=== PATIENT | female | born 1945 | race Hispanic/Latino ===

== ENCOUNTER → 2017-12-25 | Day surgery (SDC) | payer MEDICARE, OTHER ==
[2017-12-22 11:28] LABS: BASOPHILS % 0.3 % (0.0-1.0); EOSINOPHILS # (AUTO) 0.1 (0.0-0.4); EOSINOPHILS % 1.3 % (0.0-6.0); HEMATOCRIT 35.9 % (34.2-44.1); HEMOGLOBIN 11.9 g/dL (12.0-16.0); LYMPHOCYTES # (AUTO) 1.6 (1.0-3.2); LYMPHOCYTES % 25.1 % (18.0-39.1); MEAN CORPUSCULAR HEMOGLOBIN 30.1 pg (28-32); MEAN CORPUSCULAR HGB CONC 33.1 g/dL (31-35); MEAN CORPUSCULAR VOLUME 90.9 fL (81-99); MONOCYTES # (AUTO) 0.7 (0.2-0.8); MONOCYTES % 11.5 % (4.4-11.3); NEUTROPHILS # (AUTO) 3.8 (2.1-6.9); NEUTROPHILS % 61.3 % (38.7-80.0); PLATELET COUNT 211 x10e3/uL (140-360); RED BLOOD COUNT 3.95 x10e6/uL (3.6-5.1); RED CELL DISTRIBUTION WIDTH 13.1 % (11.7-14.4)
[~2017-12-25] MED LIST: ACIDOPHILUS1 EAC1 PO; ALENDRONATE SOD70 MG PO; CALCIUM CARBON500 MG PO; COLACE100 MG PO; DONEPEZIL HCL5 MG PO; FAMOTIDINE20 MG PO; FENTANYL CITRATE/PF 100MCG/2 ML INJ ONE; GABAPENTIN300 MG PO; HYOSCYAMINE SULFATE 0.5 MG/ML AMP ONE; IRON325 M1 PO; LEVOTHYROXINE125 MCG PO; LIDOCAINE HCL 2% LOCAL INJ 5 ML SDV VIAL INJ ONE; LISINOPRIL10 MG PO; MIDAZOLAM HCL 2 MG/2 ML VIAL ONE; MULTIPLE VITAM1 EAC2 PO; NAMENDA10 MG PO; PEPTO-BISM262 MG/15 PO; PROPOFOL IV EMULSION 10 MG/ML 50 ML VIAL ONE; SENNA8.6 MG PO; ULTRAM 50MG50 MG PO; ZOFRAN4 MG PO
--- NOTE | 2017-12-25 11:14 | Operative Report ---
DATE OF PROCEDURE: December 25, 2017 REFERRING PHYSICIAN: Melvina Christianson MD PROCEDURE PERFORMED: Colonoscopy. INDICATIONS FOR COLONOSCOPY: Colorectal cancer screening. MEDICATION: Patient was done under MAC. Please see anesthesiologist's note. PROCEDURE: With the patient in the left lateral decubitus position, the flexible fiberoptic Olympus colonoscope was inserted into the rectum with ease and advanced all the way to the cecum. The scope was then withdrawn slowly. The mucosa overlying the cecum appeared to be within normal limits. Scattered diverticular disease was noted throughout but was more pronounced in the distal descending and sigmoid. The rectum appeared to be within normal limits. The scope was then retroflexed into the distal rectum, and moderate-size internal hemorrhoids were noted, none of which was actively bleeding. The scope was then straightened out. It was subsequently withdrawn. Patient tolerated the procedure well. IMPRESSION 1. Diverticulosis. 2. Internal hemorrhoids, none actively bleeding. PLAN: Initiate high-fiber, low-fat diet. Initiate high-fiber supplement. Patient might benefit from a followup colonoscopy in 5 years. Job#: [id number] cc:MELVINA CHRISTIANSON MD
== END | disposition home or self-care (01) ==
LOC: OR 08:26
PROVIDERS: ATTEND Internal Medicine Gastroenterology
DX: Z12.11 Encounter for screening for malignant neoplasm of colon (principal); K57.30 Diverticulosis of large intestine without perforation or abscess without bleeding; K64.8 Other hemorrhoids; K59.00 Constipation, unspecified; K21.9 Gastro-esophageal reflux disease without esophagitis; I10 Essential (primary) hypertension; M81.0 Age-related osteoporosis without current pathological fracture; E03.9 Hypothyroidism, unspecified; M19.90 Unspecified osteoarthritis, unspecified site; Z91.010 Allergy to peanuts; Z88.0 Allergy status to penicillin; Z91.018 Allergy to other foods; Z01.810 Encounter for preprocedural cardiovascular examination; Z01.812 Encounter for preprocedural laboratory examination
CPT/HCPCS: 36415; 85025; 93005; G0121; J1980; J2001; J2250; 45378

== ENCOUNTER → 2020-02-25 | Outpatient (CLI) | payer MEDICARE, OTHER ==
[~2020-02-25] MED LIST changes: -FENTANYL CITRATE/PF 100MCG/2 ML INJ ONE; -HYOSCYAMINE SULFATE 0.5 MG/ML AMP ONE; -LIDOCAINE HCL 2% LOCAL INJ 5 ML SDV VIAL INJ ONE; -MIDAZOLAM HCL 2 MG/2 ML VIAL ONE; -PROPOFOL IV EMULSION 10 MG/ML 50 ML VIAL ONE
--- NOTE | 2020-02-28 08:21 | Diagnostic Imaging Report ---
#[id number] - [id number] #BILATERAL FIRST EVER DIGITAL SCREENING MAMMOGRAM WITH CAD: 02/25/2020 CLINICAL: Routine screening. No prior exams were available for comparison. Current study contains 5 films. The tissue of both breasts is predominantly fatty. Current study was also evaluated with a Computer Aided Detection (CAD) system. Benign calcification is present in the left breast. No significant masses, calcifications, or other findings are seen in either breast. IMPRESSION: BENIGN There is no mammographic evidence of malignancy. A 1 year screening mammogram is recommended. The patient will be notified by letter of the results. ANDREW GAMBINO M.D. ct/penrad:02/27/2020 16:07:09 Financial Developer: Gretchen HASKINS(R)(M), [facility] letter sent: Normal Exam Mammogram BI-RADS: 2 Benign
== END ==
LOC: MAMMO 09:06
PROVIDERS: ATTEND Family Medicine
DX: Z12.31 Encounter for screening mammogram for malignant neoplasm of breast (principal)
CPT/HCPCS: 77067

== ENCOUNTER → 2020-04-22 | Outpatient (CLI) | payer MEDICARE, OTHER ==
--- NOTE | 2020-04-22 11:40 | Diagnostic Imaging Report ---
Exam: Bone mineral density study. History: Osteoporosis Comparison: None Discussion: Evaluation of the left hip and lumbar spine was performed utilizing DEXA Hologic bone densitometer. The study is technically adequate. The patient's fracture risk is compared to an age-matched control. The patient denies prior surgery/fracture of the spine, hips or forearm. Left hip femoral neck bone mineral density: 0.596 g/cm2, T-score is -2.4, Z-score is -0.4. Left hip total bone mineral density: 0.657 g/cm2, T-score is -2.3, Z-score is -0.6. Lumbar spine total bone mineral density: 0.885 gm/cm2, T-score is -1.5, Z-score is 0.9. Impression: 1. Bone mineralization by WHO Classification of the left hip is osteopenia, the fracture risk is moderate. 2. Bone mineralization by WHO Classification of the lumbar spine is osteopenia, the fracture risk is moderate. Recommendations: Medical evaluation for secondary causes of low bone mineral density may be appropriate. Correlate clinically for the necessity and timing of the next bone mineral density study. Signed by: Dr. Raghavendra Valverde MD on 04/22/2020 11:37 AM
== END ==
LOC: CARD 09:34
PROVIDERS: ATTEND Family Medicine
DX: M81.0 Age-related osteoporosis without current pathological fracture (principal); I73.9 Peripheral vascular disease, unspecified
CPT/HCPCS: 77080; 93925

== ENCOUNTER → 2021-01-22 | Outpatient (CLI) | payer MEDICARE, OTHER | LOC: US 13:23 | PROVIDERS: ATTEND Family Medicine | DX: R31.29 Other microscopic hematuria (principal) | CPT/HCPCS: 76770 ==

== ENCOUNTER → 2021-09-01 | Outpatient (CLI) | payer MEDICARE, OTHER | LOC: MAMMO 09:03 | PROVIDERS: ATTEND Family Medicine | DX: Z12.31 Encounter for screening mammogram for malignant neoplasm of breast (principal); L03.116 Cellulitis of left lower limb; R60.9 Edema, unspecified | CPT/HCPCS: 76882; 77067 ==

== ENCOUNTER 2022-02-22 10:06 | Inpatient (IN) | payer MEDICARE ==
[~2022-02-22] VITALS: Ht 157.5 cm; Wt 61.2 kg
[2022-02-22] MEDS ORDERED: HYDRALAZINE HCL 20 MG/ML VIAL IV PRN (11:30)
[2022-02-22 11:35] LABS: BASOPHILS % 0.5 % (0.0-1.0); EOSINOPHILS # (AUTO) 0.1 (0.0-0.4); EOSINOPHILS % 1.4 % (0.0-6.0); HEMATOCRIT 34.9 % (34.2-44.1); HEMOGLOBIN 11.5 g/dL (12.0-16.0); LYMPHOCYTES % 24.3 % (18.0-39.1); MEAN CORPUSCULAR HEMOGLOBIN 28.7 pg (28-32); MONOCYTES # (AUTO) 0.3 (0.2-0.8); MONOCYTES % 7.9 % (4.4-11.3); NEUTROPHILS # (AUTO) 2.8 (2.1-6.9); NEUTROPHILS % 65.7 % (38.7-80.0); PLATELET COUNT 173 x10e3/uL (140-360); RED BLOOD COUNT 4.01 x10e6/uL (3.6-5.1)
[2022-02-22 11:56] LABS: ALBUMIN 3.8 g/dL (3.5-5.0); ALBUMIN/GLOBULIN RATIO 0.9 (0.8-2.0); ANION GAP 12.1 mmol/L (8-16); CREATININE, SERUM 0.6 mg/dL (0.57-1.11); POTASSIUM 3.1 mmol/L (3.5-5.1)
[2022-02-22] MEDS ORDERED: SODIUM CHLORIDE FLUSH 10 ML SYR INJ PRN (12:45)
[2022-02-22] MEDS ORDERED: ONDANSETRON HCL INJ 2MG/ML 2ML 2 MG/ML VIAL IV PRN (12:45)
[2022-02-22 16:25] VITALS: BP 166/71
[2022-02-22 16:34] VITALS: BP 166/71
[2022-02-22] MEDS ORDERED: MELOXICAM7.5 MG PO (17:16)
[2022-02-22] MEDS ORDERED: LOSARTAN POTAS100 MG PO (17:16)
[2022-02-22] MEDS ORDERED: VITAMIN D2 PO (17:16)
[2022-02-22 17:17] VITALS: BP 166/71
[2022-02-22] MEDS ORDERED: XARELTO20 MG PO (17:17)
[2022-02-22] MEDS ORDERED: TYLENOL325 MG PO (17:33)
[2022-02-22 17:48] VITALS: BP 156/67
[2022-02-22] MEDS: ACETAMINOPHEN 325 MG TAB PO PRN (18:28)
[2022-02-22 19:06] LABS: CREATINE KINASE MB 1.3 ng/mL (0-5.0)
[2022-02-22 20:00] VITALS: BP 158/75
[2022-02-22 21:15] VITALS: BP 158/75
[2022-02-22] MEDS ORDERED: MELOXICAM 7.5 MG TAB PO PRN (23:15)
[2022-02-23] VITALS (7 sets, daily range): BP systolic 145–191; BP diastolic 63–86
[2022-02-23 05:17] LABS: BASOPHILS % 0.4 % (0.0-1.0); EOSINOPHILS # (AUTO) 0.1 (0.0-0.4); EOSINOPHILS % 1.5 % (0.0-6.0); HEMATOCRIT 33.1 % (34.2-44.1); LYMPHOCYTES # (AUTO) 1.9 (1.0-3.2); LYMPHOCYTES % 40.6 % (18.0-39.1); MEAN CORPUSCULAR HEMOGLOBIN 28.4 pg (28-32); MEAN CORPUSCULAR HGB CONC 33.2 g/dL (31-35); MEAN CORPUSCULAR VOLUME 85.3 fL (81-99); MONOCYTES # (AUTO) 0.4 (0.2-0.8); MONOCYTES % 7.9 % (4.4-11.3); NEUTROPHILS # (AUTO) 2.3 (2.1-6.9); NEUTROPHILS % 49.4 % (38.7-80.0); PLATELET COUNT 175 x10e3/uL (140-360); RED BLOOD COUNT 3.88 x10e6/uL (3.6-5.1)
[2022-02-23 05:50] LABS: CREATINE KINASE MB 1.1 ng/mL (0-5.0)
[2022-02-23 06:13] LABS: ALBUMIN 3.5 g/dL (3.5-5.0); ALBUMIN/GLOBULIN RATIO 0.8 (0.8-2.0); ANION GAP 12.7 mmol/L (8-16); CHOL/HDL RATIO 4.1 (3.0-3.6); CREATININE, SERUM 0.61 mg/dL (0.57-1.11); POTASSIUM 3.7 mmol/L (3.5-5.1)
[2022-02-23] MEDS ORDERED: LEVOTHYROXINE SODIUM 125 MCG TAB PO SCH (07:30)
[2022-02-23] MEDS ORDERED: RIVAROXABAN 20 MG TABLET PO SCH (09:00)
[2022-02-23] MEDS ORDERED: LOSARTAN POTASSIUM 100 MG TAB PO SCH (09:00)
[2022-02-23] MEDS ORDERED: ONDANSETRON HCL 4 MG ORAL DISINTEGRATING TAB PO PRN (10:00)
[2022-02-23] MEDS: FAMOTIDINE 20 MG TAB PO SCH (10:00)
[2022-02-23] MEDS: HYDROCHLOROTHIAZIDE 25 MG TAB PO SCH ×2 (10:45→12:27)
[2022-02-23] MEDS ORDERED: PANTOPRAZOLE SOD 40 MG TABEC PO SCH (15:00)
[2022-02-23 16:24] LABS: CREATINE KINASE MB 1.4 ng/mL (0-5.0)
[2022-02-23] MEDS ORDERED: RIVAROXABAN 15 MG TABLET PO SCH (17:00)
[2022-02-23] MEDS: AMLODIPINE BESYLATE 5 MG TAB PO SCH (17:12)
[2022-02-23 23:13] LABS: % IRON SATURATION 29 % (15-50); IRON 82 ug/dL (50-170); TOTAL IRON BINDING CAPACITY 281 ug/dL (261-478); TRANSFERRIN 201 mg/dL (180-382)
[2022-02-23] MEDS ORDERED: BISACODYL 5 MG TAB EC PO ONE (23:45)
[2022-02-24] VITALS (7 sets, daily range): BP systolic 152–175; BP diastolic 78–87
[2022-02-24] MEDS ORDERED: BISACODYL 5 MG TAB EC PO ONE (00:20)
[2022-02-24 05:04] LABS: INR 0.92; PROTHROMBIN TIME 13.2 seconds (11.9-14.5)
[2022-02-24] MEDS ORDERED: PANTOPRAZOLE SOD 40 MG TABEC PO SCH (06:00)
[2022-02-24] MEDS ORDERED: LEVOTHYROXINE SODIUM 125 MCG TAB PO SCH (06:00)
[2022-02-24] MEDS: LEVOTHYROXINE SODIUM 75 MCG TAB PO SCH (06:00)
[2022-02-24] MEDS ORDERED: PEG (High)/E-LYTE SOLN 4,000 ML BTL PO ONE (07:00)
[2022-02-24] MEDS ORDERED: RIVAROXABAN 15 MG TABLET PO SCH (09:00)
[2022-02-24] MEDS: AMLODIPINE BESYLATE 5 MG TAB PO SCH (09:06)
[2022-02-24] MEDS: FAMOTIDINE 20 MG TAB PO SCH (09:07)
[2022-02-24] MEDS: HYDROCHLOROTHIAZIDE 25 MG TAB PO SCH (09:08)
[2022-02-24] MEDS: LOSARTAN POTASSIUM 100 MG TAB PO SCH (09:08)
[2022-02-24] MEDS: ACETAMINOPHEN 325 MG TAB PO PRN (09:09)
[2022-02-24] MEDS ORDERED: FENTANYL CITRATE/PF 100MCG/2 ML INJ ONE (14:34)
[2022-02-24] MEDS ORDERED: PROPOFOL IV EMULSION 10 MG/ML 20 ML VIAL ONE (19:16)
[2022-02-24] MEDS ORDERED: LIDOCAINE HCL 2% LOCAL INJ 5 ML SDV VIAL INJ ONE (19:16)
[2022-02-25] VITALS (7 sets, daily range): BP systolic 120–146; BP diastolic 62–71
[2022-02-25] MEDS: LEVOTHYROXINE SODIUM 75 MCG TAB PO SCH (06:09)
[2022-02-25] MEDS: AMLODIPINE BESYLATE 5 MG TAB PO SCH ×2 (09:00→09:36)
[2022-02-25] MEDS: FAMOTIDINE 20 MG TAB PO SCH ×2 (09:00→09:36)
[2022-02-25] MEDS: LOSARTAN POTASSIUM 100 MG TAB PO SCH ×2 (09:00→09:35)
[2022-02-25] MEDS: HYDROCHLOROTHIAZIDE 25 MG TAB PO SCH ×2 (09:00→09:36)
[2022-02-26] VITALS (8 sets, daily range): BP systolic 123–144; BP diastolic 64–74
[2022-02-26] MEDS: LEVOTHYROXINE SODIUM 75 MCG TAB PO SCH (05:46)
[2022-02-26] MEDS ORDERED: PANTOPRAZOLE SOD 40 MG TABEC PO SCH (07:30)
[2022-02-26] MEDS: HYDROCHLOROTHIAZIDE 25 MG TAB PO SCH (09:00)
[2022-02-26] MEDS: LOSARTAN POTASSIUM 100 MG TAB PO SCH (09:00)
[2022-02-26] MEDS: AMLODIPINE BESYLATE 5 MG TAB PO SCH (09:00)
[2022-02-26] MEDS: PANTOPRAZOLE SOD 40 MG TABEC PO SCH ×2 (09:17→16:30)
[2022-02-26] MEDS: FAMOTIDINE 20 MG TAB PO SCH (09:17)
[2022-02-26 12:33] LABS: BASOPHILS % 0.4 % (0.0-1.0); EOSINOPHILS # (AUTO) 0.1 (0.0-0.4); HEMATOCRIT 34.7 % (34.2-44.1); HEMOGLOBIN 11.7 g/dL (12.0-16.0); LYMPHOCYTES % 20.2 % (18.0-39.1); MEAN CORPUSCULAR HGB CONC 33.7 g/dL (31-35); MEAN CORPUSCULAR VOLUME 85.9 fL (81-99); MONOCYTES # (AUTO) 0.4 (0.2-0.8); MONOCYTES % 7.4 % (4.4-11.3); NEUTROPHILS # (AUTO) 3.5 (2.1-6.9); NEUTROPHILS % 70.8 % (38.7-80.0); PLATELET COUNT 193 x10e3/uL (140-360); RED BLOOD COUNT 4.04 x10e6/uL (3.6-5.1); RED CELL DISTRIBUTION WIDTH 15.1 % (11.7-14.4)
[2022-02-26 12:56] LABS: ANION GAP 17.7 mmol/L (8-16); CALCIUM 8.7 mg/dL (8.4-10.2); CREATININE, SERUM 0.54 mg/dL (0.57-1.11); POTASSIUM 3.7 mmol/L (3.5-5.1)
[2022-02-26] MEDS ORDERED: COZAAR100 MG PO (16:20)
[2022-02-26] MEDS ORDERED: NORVASC5 MG PO (16:20)
[2022-02-26] MEDS ORDERED: PANTOPRAZOLE SO40 MG PO (16:20)
[2022-02-26] MEDS ORDERED: SYNTHROID75 MCG PO (16:20)
[2022-02-26] MEDS ORDERED: ASPIRIN81 MG PO (16:23)
[2022-02-26] MEDS: ACETAMINOPHEN 325 MG TAB PO PRN (21:41)
[2022-02-27] MEDS: LEVOTHYROXINE SODIUM 75 MCG TAB PO SCH (06:18)
[2022-02-27 07:30] VITALS: BP 156/80
[2022-02-27] MEDS: PANTOPRAZOLE SOD 40 MG TABEC PO SCH (07:30)
[2022-02-27 08:00] VITALS: BP 156/80
[2022-02-27] MEDS: HYDROCHLOROTHIAZIDE 25 MG TAB PO SCH (09:25)
[2022-02-27] MEDS: FAMOTIDINE 20 MG TAB PO SCH (09:25)
[2022-02-27] MEDS: LOSARTAN POTASSIUM 100 MG TAB PO SCH (09:25)
[2022-02-27] MEDS: AMLODIPINE BESYLATE 5 MG TAB PO SCH (09:26)
[2022-02-27 11:00] VITALS: BP 130/65
== END 2022-02-27 15:00 | disposition home health service (06) | DRG 308 ==
LOC: ER 10:18 → ERHOLD 12:31 → MED/SURG 15:22
PROVIDERS: ADMIT Internal Medicine; ATTEND Internal Medicine
PROC: 0D738ZZ Dilation of Lower Esophagus, Via Natural or Artificial Opening Endoscopic (ICD-10-PCS; 2022-02-24)
PROC: 0DB68ZX Excision of Stomach, Via Natural or Artificial Opening Endoscopic, Diagnostic (ICD-10-PCS; principal; 2022-02-24 15:16)
PROC: 0DB78ZX Excision of Stomach, Pylorus, Via Natural or Artificial Opening Endoscopic, Diagnostic (ICD-10-PCS; 2022-02-24 15:16)
DX: I49.5 Sick sinus syndrome (principal); K29.71 Gastritis, unspecified, with bleeding; I16.1 Hypertensive emergency; I50.32 Chronic diastolic (congestive) heart failure; R00.1 Bradycardia, unspecified; I48.0 Paroxysmal atrial fibrillation; K44.9 Diaphragmatic hernia without obstruction or gangrene; K20.90 Esophagitis, unspecified without bleeding; K22.2 Esophageal obstruction; G89.29 Other chronic pain; Z99.89 Dependence on other enabling machines and devices; I11.0 Hypertensive heart disease with heart failure; Z79.01 Long term (current) use of anticoagulants; Z20.822 Contact with and (suspected) exposure to COVID-19; Z53.29 Procedure and treatment not carried out because of patient's decision for other reasons; K59.00 Constipation, unspecified; Z88.0 Allergy status to penicillin; Z88.8 Allergy status to other drugs, medicaments and biological substances; Z91.018 Allergy to other foods
CPT/HCPCS: 36415; 43239; 43450; 70450; 71045; 76700; 80048; 80053; 80061; 80162; 82270; 82550; 82553; 82607; 82746; 83540; 84443; 84466; 84484; 85025; 85045; 85610; 88304; 88305; 88312; 88342; 93005; 93306; 99251; 99285; J0360; J2001; J3010; Q0162

== ENCOUNTER 2024-02-27 19:17 | Inpatient (IN) | payer MEDICARE ==
[~2024-02-27] VITALS: Ht 157.5 cm; Wt 61.2 kg
[~2024-02-27 19:17] MED LIST changes: +ASPIRIN81 MG PO; +COZAAR100 MG PO; +LOSARTAN POTAS100 MG PO; +MELOXICAM7.5 MG PO; +NORVASC5 MG PO; +PANTOPRAZOLE SO40 MG PO; +SYNTHROID75 MCG PO; +TYLENOL325 MG PO; +VITAMIN D2 PO; +XARELTO20 MG PO
[2024-02-27] MEDS ORDERED: ONDANSETRON HCL INJ 2MG/ML 2ML 2 MG/ML VIAL IV STA (19:27)
[2024-02-27] MEDS ORDERED: SODIUM CHLORIDE 0.9% 1000ML 1,000 ML IV SCH (19:30)
[2024-02-27] MEDS ORDERED: ACETAMINOPHEN 325 MG TAB PO ONE (19:30)
[2024-02-27 19:57] VITALS: TEMP 97.4
[2024-02-27 20:15] LABS: BASOPHILS % 0.6 % (0.0-1.0); EOSINOPHILS % 0.3 % (0.0-6.0); HEMATOCRIT 32.8 % (34.2-44.1); HEMOGLOBIN 10.7 g/dL (12.0-16.0); LYMPHOCYTES # (AUTO) 0.9 (1.0-3.2); LYMPHOCYTES % 25.3 % (18.0-39.1); MEAN CORPUSCULAR HEMOGLOBIN 31.4 pg (28-32); MEAN CORPUSCULAR HGB CONC 32.6 g/dL (31-35); MEAN CORPUSCULAR VOLUME 96.2 fL (81-99); MONOCYTES # (AUTO) 0.3 (0.2-0.8); MONOCYTES % 7.8 % (4.4-11.3); NEUTROPHILS # (AUTO) 2.4 (2.1-6.9); NEUTROPHILS % 65.4 % (38.7-80.0); PLATELET COUNT 114 x10e3/uL (140-360); RED BLOOD COUNT 3.41 x10e6/uL (3.6-5.1); RED CELL DISTRIBUTION WIDTH 13.6 % (11.7-14.4); WHITE BLOOD COUNT 3.59 x10e3/uL (4.8-10.8)
[2024-02-27 20:23] LABS: INR 1.12
[2024-02-27 20:24] LABS: PARTIAL THROMBOPLASTIN TIME 31.1 seconds (23.8-35.5)
[2024-02-27 20:32] LABS: ALBUMIN 3.7 g/dL (3.5-5.0); ANION GAP 13.4 mmol/L (8-16); CREATININE, SERUM 0.63 mg/dL (0.57-1.11); TOTAL PROTEIN 7.4 g/dL (6.5-8.1)
[2024-02-27 20:33] LABS: POTASSIUM 3.4 mmol/L (3.5-5.1)
[2024-02-27] MEDS: METOPROLOL TARTRATE INJ 1 MG/ML VIAL IV ONE (20:38)
[2024-02-27] MEDS ORDERED: ONDANSETRON HCL INJ 2MG/ML 2ML 2 MG/ML VIAL IV PRN (22:30)
[2024-02-27] MEDS: ENOXAPARIN SOD INJ 60 MG/0.6 ML SYR SC STA (22:56)
[2024-02-27 23:00] VITALS: PULSE 81; RESP 18
[2024-02-28] VITALS (10 sets, daily range): BP systolic 131–157; BP diastolic 82–107; PULSE 70–102; RESP 16–20; TEMP 97.4–98.3; O2SAT 96–100
[2024-02-28] MEDS: ACETAMINOPHEN 325 MG TAB PO PRN (04:53)
[2024-02-28] MEDS ORDERED: MELOXICAM 7.5 MG TAB PO PRN (05:30)
[2024-02-28] MEDS: LEVOTHYROXINE SODIUM 75 MCG TAB PO SCH (06:00)
[2024-02-28 06:58] LABS: CHOL/HDL RATIO 3.4 (3.0-3.6)
[2024-02-28 08:08] LABS: TROPONIN I 0.013 ng/mL (0-0.300)
[2024-02-28] MEDS ORDERED: LOSARTAN POTASSIUM 100 MG TAB PO SCH (09:00)
[2024-02-28] MEDS: ASPIRIN 81 MG CHEW TAB PO SCH (09:00)
[2024-02-28] MEDS: FAMOTIDINE 20 MG TAB PO SCH (09:05)
[2024-02-28] MEDS: METOPROLOL TARTRATE 25 MG TAB PO SCH (09:05)
[2024-02-28] MEDS: LOSARTAN POTASSIUM 25 MG TAB PO SCH (09:06)
[2024-02-28] MEDS: PANTOPRAZOLE SOD 40 MG TABEC PO SCH (09:09)
[2024-02-28 15:08] LABS: TROPONIN I 0.005 ng/mL (0-0.300)
[2024-02-28] MEDS: SODIUM CHLORIDE 0.9% 1000ML 1,000 ML IV SCH (16:01)
[2024-02-28] MEDS ORDERED: IOPAMIDOL 370 MG/ML 100 ML INFUS..BTL INJ ONE (16:25)
[2024-02-29] VITALS (8 sets, daily range): BP systolic 106–146; BP diastolic 70–98; PULSE 69–103; RESP 16–17; TEMP 97.8–98.4; O2SAT 99–100
[2024-02-29 06:46] LABS: TROPONIN I 0.007 ng/mL (0-0.300)
[2024-02-29] MEDS: DOCUSATE SODIUM 100 MG CAP PO SCH (16:59)
[2024-02-29] MEDS ORDERED: DOCUSATE SODIUM LIQD 100 MG/10 ML UDC NG SCH (17:00)
[2024-02-29] MEDS ORDERED: COZAAR25 MG PO (18:08)
[2024-02-29] MEDS ORDERED: LOPRESSOR25 MG PO (18:08)
[2024-02-29] MEDS ORDERED: ONDANSETRON4 MG/2 M1 IV (18:08)
[2024-02-29] MEDS ORDERED: ONDANSETRON HCL 4 MG ORAL DISINTEGRATING TAB PO PRN (19:30)
[2024-03-01] VITALS: BP 121/85; PULSE 81; RESP 17; TEMP 98.3; O2SAT 100
== END 2024-02-29 23:49 | disposition short-term general hospital (02) | DRG 309 ==
LOC: ER 19:29 → ERHOLD 22:29 → MED/SURG3 23:57 → OBSVTOIN 02-29 08:45
PROVIDERS: ADMIT Internal Medicine; ATTEND Internal Medicine
DX: I48.0 Paroxysmal atrial fibrillation (principal); J90 Pleural effusion, not elsewhere classified; D69.6 Thrombocytopenia, unspecified; D63.1 Anemia in chronic kidney disease; I10 Essential (primary) hypertension; E78.5 Hyperlipidemia, unspecified; D72.819 Decreased white blood cell count, unspecified; R91.1 Solitary pulmonary nodule; E03.9 Hypothyroidism, unspecified; Z79.82 Long term (current) use of aspirin; Z79.890 Hormone replacement therapy; Z90.49 Acquired absence of other specified parts of digestive tract; Z88.0 Allergy status to penicillin; Z88.8 Allergy status to other drugs, medicaments and biological substances; Z91.010 Allergy to peanuts
CPT/HCPCS: 36415; 71045; 71260; 80053; 80061; 82550; 83735; 84443; 84484; 85025; 85610; 85730; 87086; 93005; 93306; 93925; 93970; 94799; 99284; G0378; J1650; J7030; Q9967